=== PATIENT | female | born 1980 | race Two or more races ===

== ENCOUNTER 2021-04-26 23:40 | Emergency (ER) | payer BC ==
[~2021-04-26] VITALS: Ht 160 cm; Wt 58.1 kg
[2021-04-27] MEDS ORDERED: PROAIR RESPICL90 MCG IH (02:34)
[2021-04-27] MEDS ORDERED: MEDROLPACK PO (02:34)
[2021-04-27] MEDS ORDERED: MUCINEX DM ER1 EAC1 PO (02:34)
[2021-05-03] MEDS ORDERED: ACETAMINOPHEN650 M2 (10:40)
== END 2021-04-27 02:47 | disposition home or self-care (01) ==
LOC: ER 23:40
DX: J45.901 Unspecified asthma with (acute) exacerbation (principal); J06.9 Acute upper respiratory infection, unspecified; Z03.818 Encounter for observation for suspected exposure to other biological agents ruled out